=== PATIENT | male | born 1985 | race African-American/Black ===

== ENCOUNTER 2016-07-18 22:58 | Emergency (ER) | payer SELFPAY ==
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
== END 2016-07-19 00:40 | disposition home or self-care (01) ==
LOC: SED 22:58
DX: S02.2XXA Fracture of nasal bones, initial encounter for closed fracture (principal); S00.83XA Contusion of other part of head, initial encounter; X58.XXXA Exposure to other specified factors, initial encounter; Y92.410 Unspecified street and highway as the place of occurrence of the external cause
CPT/HCPCS: 70486; 99284